=== PATIENT | female | born 1955 | race Caucasian/White ===

== ENCOUNTER 2017-10-09 07:16 | Emergency (ER) | payer OTHER ==
[~2017-10-09] VITALS: Ht 167.6 cm; Wt 113.4 kg
--- NOTE | ~2017-10-09 | EKG ---
[address] [address] ELECTROCARDIOGRAM REPORT Name: NEGRO HARRIS Room [facility]: [id number] Admission: 10/09/17 Attend Phys: Discharge: Date of : 51 Report #: [id number] THIS REPORT FOR: //name// [facility] ED Test Date: 2017-10-09 Test Time: 08:13:17 Pat Name: NEGRO HARRIS Department: Room: Gender: F [employer]: tessa : 1955 Requested By: Beatrice Torrez Order Number: [id number] MD: Da Burnham Measurements Intervals [place] Rate: 63 P: 46 [place]: 162 QRS: 34 QRSD: 84 T: 29 QT: 416 QTc: 426 Interpretive Statements Sinus rhythm Normal tracing No previous ECG available for comparison Electronically Signed On 10-09-2017 8:41:12 CDT by Da Burnham [email or web address] <ELECTRONICALLY SIGNED> By: Da Burnham MD, [facility] 10/09/17 0841 [id number] 08 Da Burnham MD, [facility] /EPI
[~2017-10-09 07:16] MED LIST: APIDRA SOL100 UNIT/1 SUBQ; CENTRUM SILVER1 EAC4; CIPRO250 M1 PO; CIPRO500 MG PO; FISH OIL 1,001000 M2 PO; LEVEMIR SUBQ; LISINOPRIL10 MG PO; MACROBID 100 M100 M2 PO; ONDANSETRON HCL4 M2 PO
[2017-10-09 07:35] LABS: BASOPHILS 0.9 % (0.0-2.0); EOSINOPHILS 7.6 % (0.0-3.0); HEMATOCRIT 37.2 % (37.0-47.0); HEMOGLOBIN 12.5 gm/dL (12.0-15.0); LYMPHOCYTES 31.2 % (24.0-44.0); MCH 27.5 pg (26.0-34.0); MCHC 33.4 g/dL (28.0-37.0); MCV 82.3 fL (80.0-100.0); MONOCYTES 10.5 % (1.0-8.0); PLATELET COUNT 146 thou/uL (150-400); POLYS 49.8 % (36.0-66.0); RBC 4.52 mil/uL (4.20-5.00); RDW 14.1 % (10.5-14.5); WBC 3.9 thou/uL (4.0-11.0)
[2017-10-09 07:43] LABS: ANION GAP 10 mmol/L (7-16); BUN 25 mg/dL (7-18); CALCIUM 9.4 mg/dL (8.5-10.1); CHLORIDE 107 mmol/L (98-107); CO2 23 mmol/L (21-32); CREATININE 1.5 mg/dL (0.6-1.0); GLUCOSE 128 mg/dL (74-106); POTASSIUM 3.4 mmol/L (3.5-5.1); SODIUM 140 mmol/L (136-145)
[2017-10-09 07:52] LABS: TROPONIN-I < 0.04 ng/mL (<0.06)
== END 2017-10-09 09:47 | disposition home or self-care (01) ==
LOC: ER 07:16
PROVIDERS: Emergency Medicine
DX: E11.649 Type 2 diabetes mellitus with hypoglycemia without coma (principal); I10 Essential (primary) hypertension; Z87.891 Personal history of nicotine dependence